=== PATIENT | male | born 1985 | race Caucasian/White ===

== ENCOUNTER → 2016-06-12 | Outpatient (CLI) | payer OTHER ==
[~2016-06-12] MED LIST: BACI1OIN22 OPL
== END | disposition home or self-care (01) ==
LOC: C.LAB 23:57
DX: Z02.83 Encounter for blood-alcohol and blood-drug test (principal)

== ENCOUNTER 2017-05-11 17:42 | Emergency (ER) | payer SELFPAY ==
[~2017-05-11] VITALS: Ht 172.7 cm; Wt 82.4 kg
[2017-05-11 17:48] VITALS: TEMP 36.3; Ht 172.7 cm; Wt 82.4 kg
[2017-05-11] MEDS ORDERED: LIDOCAINE/EPINEPHRINE 1% 20 ML VIAL INFIL STA (17:59)
[2017-05-11] MEDS ORDERED: AMOXICILLIN/CLAVULANATE TAB 875 MG TAB PO STA (17:59)
[2017-05-11] MEDS ORDERED: DIPHTHERIA/TETANUS/PERTUSSIS 0.5 ML SYR/VIAL IM. ONE (18:00)
[2017-05-11] MEDS ORDERED: ALBUTEROL HFA 8 GM INHALER INH STA (18:56)
--- NOTE | 2017-05-11 18:56 | DIAGNOSTIC IMAGING REPORT ---
RIGHT HUMERUS 2 VIEWS CLINICAL HISTORY: Right arm pain. Dog bite injury. FINDINGS: AP and lateral views of the right humerus are obtained. No prior studies are available for comparison at the time of dictation. The skeletal structures are well mineralized. No right humeral fracture is seen. The elbow and shoulder joints are grossly maintained. Mild soft tissue edema is seen above the elbow joint, greatest medially. No radiodense foreign body is identified. The partially imaged right lung parenchyma appears clear. IMPRESSION: 1. There is no radiographic evidence of right humeral fracture. 2. Mild soft tissue edema is noted around the distal humerus. Electronically signed by: Rehan Young M.D. 05/11/2017 6:55 PM Dictated Date/Time: 05/11/2017 6:54 PM
[2017-05-11] MEDS ORDERED: AMOXICIL/CLAVU 875MG HOME PACK PO STA ×2 (19:48)
[2017-05-11] MEDS ORDERED: AMOX875T PO (19:50)
--- NOTE | 2017-05-11 19:51 | EMERGENCY ROOM VISIT NOTE ---
History First contact with patient: 17:51 Chief Complaint: BITE Stated Complaint: DOG BITE RIGHT ARM History of Present Illness The patient is a 31 year old male who presents to the Emergency Room via private vehicle accompanied by male with complaints of "Dog bite right arm". The patient states that earlier today approximate 1 hour prior to arrival he was at a friend's house, when his friend's dog which is a pit bull turned and bit his right bicep region. He is right-hand dominant. He is unsure of his tetanus status. He denies any numbness or tingling. Moderate bleeding was noted. He believes that the dog shots are up-to-date, as it is a house Dog that is getting older. It is not showing any signs of rabies. Review of Systems A complete 6-point Review of Systems was discussed with the patient, with pertinent positives and negatives listed in the History of Present Illness. All remaining Review of Systems questions can be considered negative unless otherwise specified. Past Medical/Surgical History No pertinent. Family History No pertinent. Social History Smoking Status: Former Smoker Patient lives locally. Current/Historical Medications Scheduled Amoxicillin & Pot Clavulanate (Augmentin 875-125 mg), 1 TAB PO BID Bacitracin Oph (Bacitracin Oph), 1 APPLN OPL 5XD Physical Exam Vital Signs Date Time Temp Pulse Resp B/P (MAP) Pulse Ox O2 Delivery O2 Flow Rate FiO2 05/11/17 19:56 84 18 118/81 98 05/11/17 17:48 36.3 85 18 121/81 98 Room Air Physical Exam VITAL SIGNS - Vital signs and nursing notes were reviewed. Stable. GENERAL -31-year-old male appearing his stated age who is in no acute distress. Communicates well with provider and answers questions appropriately. SKIN - Without rashes. No particular meningeal rash. There is a 1 cm gaping wound to the right anterior biceps, as well as 1 medially/inferior to this region. This is where the dog must have opened its mouth to grasp. No deep involvement. Adipose tissue is showing. No retained foreign body noted. EXTREMITIES - No clubbing or peripheral cyanosis. He is neurovascularly intact in the right upper extremity. No deficits appreciated. There is tenderness to palpation overlying the laceration region as well as superficial abrasion around the wound. +5/5 strength noted in UE/LE bilaterally. Medical Decision & Procedures ER Provider Diagnostic Interpretation: RIGHT HUMERUS 2 VIEWS CLINICAL HISTORY: Right arm pain. Dog bite injury. FINDINGS: AP and lateral views of the right humerus are obtained. No prior studies are available for comparison at the time of dictation. The skeletal structures are well mineralized. No right humeral fracture is seen. The elbow and shoulder joints are grossly maintained. Mild soft tissue edema is seen above the elbow joint, greatest medially. No radiodense foreign body is identified. The partially imaged right lung parenchyma appears clear. IMPRESSION: 1. There is no radiographic evidence of right humeral fracture. 2. Mild soft tissue edema is noted around the distal humerus. Electronically signed by: Rehan Young M.D. 05/11/2017 6:55 PM Dictated Date/Time: 05/11/2017 6:54 PM Medications Administered Medications (Trade) Dose Ordered Sig/Mya Route Start Time Stop Time Status Last Admin Dose Admin Diphtheria/ Pertussis/Tetanus Vacc (Adacel Inj) 0.5 ml ONCE ONCE IM. 05/11/17 18:00 05/11/17 18:02 DC 05/11/17 18:09 0.5 ML Amoxicillin/ Clavulanate Potassium (Augmentin Tab) 875 mg NOW STAT PO 05/11/17 17:59 05/11/17 18:02 DC 05/11/17 18:07 875 MG Albuterol (Ventolin Hfa Inhaler) 2 puffs ONE STAT INH 05/11/17 18:56 05/11/17 18:57 DC 05/11/17 19:06 2 PUFFS Amoxicillin/ Clavulanate Potassium (Augmentin 875MG Home Pack) 1 homepack UD STAT PO 05/11/17 19:48 05/11/17 19:50 DC 05/11/17 19:54 1 HOMEPACK Amoxicillin/ Clavulanate Potassium (Augmentin 875MG Home Pack) 1 homepack UD STAT PO 05/11/17 19:48 05/11/17 19:50 DC 05/11/17 19:54 1 HOMEPACK Medical Decision Patient was seen and evaluated as above. He presents to us today with right arm pain status post dog bite. Review was performed of nursing notes and vital signs. After obtaining a thorough history and physical examination the above work up was performed. He was given Augmentin. X-ray was obtained to rule out foreign body. This was negative. The wound was anesthetized with 4 cc of 1% buffered lidocaine with epinephrine. He tolerated this well. This was after discussing benefit versus risk and obtaining consent. Region was then irrigated with normal saline and cleansed with Betadine. It was loosely approximated with 2 sutures. It was then dressed with bacitracin, and the other wound distal and more medial was much smaller and was cleansed and dressed with a bacitracin dressing. He will be given a short prescription for Augmentin. Because of the holiday weekend he will be given to home packs here with the other 3 days via written prescription to be filled. He was educated upon risk of infection and to return with such. The patient was educated upon management, had questions answered prior to discharge, and was discharged home in good condition. His tetanus was updated here. He also notes that he has trouble breathing because of his asthma and forgot his inhaler therefore was given 1 here and was feeling much better. He was offered rabies immunization here and after discussing benefit versus risk he respectfully declined noting that he may certainly return if he finds that the dog's rabies immunizations are not up to date or symptoms of rabies from the dog are seen. Impression Primary Impression: Dog bite Departure Information Dispostion Home / Self-Care Condition GOOD Prescriptions Amoxicillin & Pot Clavulanate (Augmentin 875-125 mg) 1 Tab Tab 1 TAB PO BID for 3 Days, #6 TAB Prov: James Snowden PA-C 05/11/17 Referrals No Doctor, Assigned (PCP) Patient Instructions My [facility] Additional Instructions You have received 2 sutures on your right arm. These sutures are NOT dissolvable and WILL need to be removed by a health care provider in 12 days. You can return to the Emergency Department or contact your Primary Care Provider to have the sutures removed. Proper wound care is essential for adequate wound healing and infection prevention. You can shower and clean the wound with soap and water. Do not scour over the wound, pat dry with a towel. Do not submerse the wound (i.e. bathe or dish wash) until the sutures have been removed. You can use an antibiotic ointment with a dressing over the wound for the next 3-4 days. After this time you may leave the wound dry and open to the air. If crust develops over the wound you can use a Q-tip to apply a 1:1 peroxide:water solution to clean the wound. Please take Augmentin 1 tablet every 12 hours for 5 days. Your given the first dose here with the next dose to be taken at 8 AM tomorrow. And then every 12 hours. Remainder should be picked up at the pharmacy of your choice as you prescription was written for you to take to the pharmacy. Look for signs of infection of the wound including: increased pain, swelling, foul discharge, streaking, or increased temperature. If any of these are noticed you should return to the Emergency Department for further assessment and treatment. As with any laceration you may have received nerve damage to the surrounding tissues. This damage may or may not be permanent. You should keep the area covered with sunscreen for the first 6 months to 1 year when at risk for exposure to help minimize scarring. You can also use scar reducing creams or Vitamin E oil to help minimize scarring. For pain control, you can use the following [id number] medicines (if >12 yo): - Regular strength (325mg/tab) Tylenol (acetaminophen) 2 tabs every 4-6 hours as needed. Do not exceed 12 tablets in a 24 hour period. Avoid taking more than 3 grams (3000 mg) of Tylenol per day. This includes any other sources of acetaminophen you may take on a regular basis. - Regular strength (200 mg/tab) Advil (ibuprofen) 1-2 tabs every 4-6 hours as needed. Do not exceed a dose of 3200 mg per day. Return to the emergency department if your symptoms worsen despite treatment course outlined above.
[2017-05-11 19:56] VITALS: BP 118/81; PULSE 84; O2SAT 98
== END 2017-05-11 19:57 | disposition home or self-care (01) ==
LOC: C.EDB 17:43 → C.EDD 19:57
DX: S41.151A Open bite of right upper arm, initial encounter (principal); W54.0XXA Bitten by dog, initial encounter; Y92.009 Unspecified place in unspecified non-institutional (private) residence as the place of occurrence of the external cause; Z23 Encounter for immunization; J45.909 Unspecified asthma, uncomplicated; Z87.891 Personal history of nicotine dependence